=== PATIENT | female | born 1995 | race Caucasian/White ===

== ENCOUNTER 2023-08-31 14:13 | Outpatient (AMB) | payer OTHER, SELFPAY ==
--- NOTE | 2023-08-31 14:09 | MHC.AM.SUB ---
Vital Signs 08/31/23 14:18 BP 108/66 Blood Pressure Location Lt brachial Position Sitting Pulse 68 Pulse Source Pulse Oximeter Pulse Oximetry (%) 98 Oxygen Delivery Method Room Air Intake Visit Reasons: Intake Allergies No Known Allergies Allergy (Verified 08/31/23 14:19) Medication List - Last Reconciled 08/31/23 by Perla Ramos NP escitalopram oxalate mg PO escitalopram oxalate 5 mg PO DAILY HPI HPI Intake: Details: Patient presents for intake as a referral from [facility] Recovery Has been doing IOP with [facility] but is looking for [facility] counseling for aftercare Started on Lexapro at the IOP- daily dose is now 15mg/day Stably housed- lives with family Has stable transportation Has been abstinent from alcohol since April Has no cravings for alcohol at this time Reports she used to drink socially but use increased during the pandemic Was drinking approx a pint of vodka daily Has never experienced complicated withdrawals Reports hx of tx for an eating d/o Past substance use includes: cocaine (tried a couple of times in the past and did not like it), previously had script for adderall that she felt she abused at times, occasional marijuana, and occasional vaping Has never been hospitalized psychiatrically Would like counseling referral HPI Comments Details: Patient presents for MAT visit Review of Systems Const Reports as per HPI Physical Exam Vital Signs: Last Vital Signs Pulse 68 08/31/23 14:18 BP 108/66 08/31/23 14:18 Pulse Ox 98 08/31/23 14:18 Oxygen Delivery Method Room Air 08/31/23 14:18 Const General: cooperative and no acute distress Resp Effort & Inspection: normal respiratory effort and able to speak in complete sentences Psych Appearance: grossly normal Mental Status: mental status grossly normal Speech and movement: Normal speech and movement present Affect: normal affect Attitude: cooperative Thought process: Normal thought process present Results AMB 14 Panel Urine Drug Screen Urine Marijuana (THC) Positive Last Edit by Adrianne Willoughby CMA on 08/31/23 14:26 Urine Cocaine Negative Last Edit by Adrianne Willoughby CMA on 08/31/23 14:26 Urine Morphine Negative Last Edit by Adrianne Willoughby CMA on 08/31/23 14:26 Urine Methamphetamine Negative Last Edit by Adrianne Willoughby CMA on 08/31/23 14:26 Urine Amphetamine Negative Last Edit by Adrianne Willoughby CMA on 08/31/23 14:26 Urine Benzodiazepine Negative Last Edit by Adrianne Willoughby CMA on 08/31/23 14:26 Urine Barbiturates Negative Last Edit by Adrianne Willoughby CMA on 08/31/23 14:26 Urine Methadone Negative Last Edit by Adrianne Willoughby CMA on 08/31/23 14:26 Urine Buprenorphine Negative Last Edit by Adrianne Willoughby CMA on 08/31/23 14:26 Urine Tricyclic Antidepressant Negative Last Edit by Adrianne Willoughby CMA on 08/31/23 14:26 Urine MDMA Negative Last Edit by Adrianne Willoughby CMA on 08/31/23 14:26 Urine Oxycodone Negative Last Edit by Adrianne Willoughby CMA on 08/31/23 14:26 Urine Phencyclidine Negative Last Edit by Adrianne Willoughby CMA on 08/31/23 14:26 Urine Propoxyphene Negative Last Edit by Adrianne Willoughby CMA on 08/31/23 14:26 Results Reviewed Results Reviewed: Laboratory Last Values POC Urine Buprenorphine Negative 08/31/23 14:25 POC Urine Morphine Negative 08/31/23 14:25 POC Urine Oxycodone Negative 08/31/23 14:25 POC Urine Methadone Negative 08/31/23 14:25 POC Urine Propoxyphene Negative 08/31/23 14:25 POC Urine Barbiturates Negative 08/31/23 14:25 POC U Tricyclic Antidpr Negative 08/31/23 14:25 POC Urine PCP Negative 08/31/23 14:25 POC Ur Amphetamines Negative 08/31/23 14:25 POC Ur Methamphetamine Negative 08/31/23 14:25 POC Urine MDMA Negative 08/31/23 14:25 POC Ur Benzodiazepine Negative 08/31/23 14:25 POC Urine Cocaine Negative 08/31/23 14:25 POC Ur Marijuana (THC) Positive 08/31/23 14:25 Assessment & Plan Assessment & Plan (1) Alcohol use disorder, moderate, dependence: Code(s): F10.20 - Alcohol dependence, uncomplicated Category: Medical Plan: -Counseling referral placed -She is not interested in [facility] at this time, educational handout provided -Recovery supports discussed -Follow up 1 month -Encouraged her to call the clinic with any questions or concerns Orders: Orders AMB 14 Panel Urine Drug Screen 08/31/23 Z51.81 - Encounter for therapeutic drug level monitoring Complete Blood Count Auto Diff 08/31/23 F10.20 - Alcohol dependence, uncomplicated Comprehensive Met. Panel 08/31/23 F10.20 - Alcohol dependence, uncomplicated Referrals Counseling Referral F10.20 - Alcohol dependence, uncomplicated, F32.A - Depression, unspecified
[2023-08-31 14:18] VITALS: BP 108/66; PULSE 68; O2SAT 98
== END 2023-08-31 15:16 | disposition home or self-care (01) ==
PROVIDERS: Visit Provider Nurse Practitioner Family
DX: F10.20 Alcohol dependence, uncomplicated (principal)
CPT/HCPCS: 99204

== ENCOUNTER → 2023-08-31 14:13 | Outpatient (BNVA) | payer OTHER, SELFPAY | PROVIDERS: Visit Provider Nurse Practitioner Family | DX: F10.20 Alcohol dependence, uncomplicated (principal) | CPT/HCPCS: 80305 ==

== ENCOUNTER 2023-11-25 09:24 | Outpatient (AMB) | payer OTHER, SELFPAY ==
--- NOTE | 2023-11-25 09:50 | A.OFFVISCC_ITS ---
Intake Visit Reasons: MAT Allergies No Known Allergies Allergy (Verified 08/31/23 14:19) HPI HPI MAT: Details: Patient presents for follow up Last appt in August Lexapro and Wellbutrin started in [facility] Completed treatment at [facility] a couple of weeks ago No alcohol for 6 months AA has a sponsor starting a new job in December at [employer] needs a refill on her medication Review of Systems Const Reports as per HPI and Reports no additional complaints Physical Exam Const General: cooperative, healthy appearing and well groomed Assessment & Plan Assessment & Plan (1) Alcohol use disorder, moderate, in early remission: Code(s): F10.21 - Alcohol dependence, in remission Category: Medical Plan: * refilled wellbutrin and lexapro * patient not seeking ongoing recovery support --encouraged to follow up with primary care to continue medications * no follow up indicated at this time Medications: New bupropion HCl XL (Wellbutrin XL) 150 mg PO QAM 90 tabs 0RF escitalopram oxalate (Lexapro) 10 mg PO DAILY 90 tabs 0RF
== END 2023-11-25 09:59 | disposition home or self-care (01) ==
PROVIDERS: Visit Provider Nurse Practitioner Psychiatric/Mental Health
DX: F10.21 Alcohol dependence, in remission (principal)
CPT/HCPCS: 99213

== ENCOUNTER → 2023-11-25 09:24 | Outpatient (BNVA) | payer OTHER, SELFPAY | PROVIDERS: Visit Provider Nurse Practitioner Psychiatric/Mental Health ==